=== PATIENT | male | born 1995 | race African-American/Black ===

== ENCOUNTER 2021-12-01 03:41 | Emergency (ER) | payer SELFPAY ==
[~2021-12-01] VITALS: Ht 190.5 cm; Wt 70.3 kg
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
[2021-12-01 03:51] VITALS: BP_SYST 133
--- NOTE | 2021-12-01 03:56 | NUR ---
[facility] CALLED AND SPOKE DISPATCHER REGARDING STATED COMPLAINTS.
--- NOTE | 2021-12-01 03:56 | NUR ---
PT STATES HE FEELS BETTER AT THIS TIME. DR. ROCHA, TALKING TO PATIENT AT THIS TIME.
--- NOTE | 2021-12-01 03:58 | NUR ---
PER MD PT LEFT AMA,NO FORMED SIGNED AT THIS TIME. ADVICED PT TO COME BACKIF SYMPTOM WORSEN.
[2021-12-01] MEDS ORDERED: ACETAMINOPHEN 500 MG TABLET PO ONE (04:00)
== END 2021-12-01 04:03 | disposition left against medical advice (07) ==
LOC: SED 03:41
DX: S00.81XA Abrasion of other part of head, initial encounter (principal); Z79.899 Other long term (current) drug therapy; Y04.0XXA Assault by unarmed brawl or fight, initial encounter; Y93.89 Activity, other specified; Y92.89 Other specified places as the place of occurrence of the external cause; Y99.8 Other external cause status
CPT/HCPCS: 99282